=== PATIENT | male | born 1980 | race Caucasian/White ===

== ENCOUNTER 2021-04-10 23:50 | Emergency (ER) | payer OTHER ==
[~2021-04-10] VITALS: Ht 177.8 cm; Wt 77.1 kg
[2021-04-11] MEDS ORDERED: BUPRENORPHIN-N1 EAC4 PO (00:46)
== END 2021-04-11 01:35 | disposition home or self-care (01) ==
LOC: ER 23:50
DX: K40.90 Unilateral inguinal hernia, without obstruction or gangrene, not specified as recurrent (principal); F17.210 Nicotine dependence, cigarettes, uncomplicated
CPT/HCPCS: 99283

== ENCOUNTER 2021-06-21 07:34 | Day surgery (SDC) | payer OTHER ==
[~2021-06-21] VITALS: Ht 177.8 cm; Wt 71.6 kg
[~2021-06-21 07:34] MED LIST: BUPRENORPHIN-N1 EAC4 PO
--- NOTE | 2021-06-21 08:12 | NUR ---
PT ADMITTED TO [facility]. AGREES WITH PLANNED SURGERY. LUNG SOUNDS CLEAR.
--- NOTE | 2021-06-21 11:50 | NUR ---
PT ALERT AND ORIENTED, ABLE TO REPOSITION SELF IN BED. REQUESTING PO FLUIDS. ONE INCISION SITE ON LEFT INGUINAL AREA WITH GAUZE DRESSING COVERED IN CLEAR WINDOW TAPE. DRESSING IS CLEAN, DRY AND INTACT. NO BRUISING, INFLAMMATING OR DRAINING NOTED.
--- NOTE | 2021-06-21 12:23 | NUR ---
PATIENT UP TO DRES INDEPENDANTLY. GAIT STEADY. DENIES PAIN AND NAUSEA. NO C/O AT THIS TIME.
--- NOTE | 2021-06-21 12:24 | NUR ---
PATIENT GIVEN COPY OF DISCHARGE INSTRUCTIONS AFTER REVIEWING THEM TOGETHER. PATIENT STATES HE HAS NO QUESTIONS. PRESCRIPTION SCRIPT GIVEN TO PATIENT TO FILL.
== END 2021-06-21 12:26 | disposition home or self-care (01) ==
LOC: ORSCMMR 07:34 → ORD 09:00 → ORSCMMR 12:26
PROVIDERS: Surgery
PROC: 0YU60JZ Supplement Left Inguinal Region with Synthetic Substitute, Open Approach (ICD-10-PCS; principal; 2021-06-21 09:00)
DX: K40.30 Unilateral inguinal hernia, with obstruction, without gangrene, not specified as recurrent (principal); F17.210 Nicotine dependence, cigarettes, uncomplicated
CPT/HCPCS: A9270; C1781; J0690; J1100; J1885; J2250; J2405; J2704; J3010; J7120

== ENCOUNTER → 2025-03-05 | Outpatient (CLI) | payer OTHER ==
[2025-03-19 14:40] LABS: Stool Occult Bld Immuno 1 Negative (NEGATIVE)
== END | disposition home or self-care (01) ==
LOC: LAB 12:17 → LAB SHORT 12:17
DX: R63.4 Abnormal weight loss (principal)
CPT/HCPCS: G0328